=== PATIENT | female | born 1970 | race Two or more races ===

== ENCOUNTER 2024-11-30 12:45 | Emergency (ER) | payer OTHER ==
[2024-11-30 12:54] VITALS: BP 128/76; PULSE 74; RESP 18; TEMP 98.1; BMI 30.8
[2024-11-30] MEDS ORDERED: ACETAMINOPHEN 500 MG TABLET (FP) ONE (13:27)
[2024-11-30] MEDS: ACETAMINOPHEN 500 MG TABLET (FP) PO ONE (13:30)
[2024-11-30 13:33] LABS: URINE APPEARANCE CLEAR; URINE BILIRUBIN NEGATIVE (NEGATIVE); URINE COLOR YELLOW; URINE GLUCOSE (UA) NEGATIVE (NEGATIVE); URINE KETONE NEGATIVE (NEGATIVE); URINE LEUK ESTERASE NEGATIVE (NEGATIVE); URINE NITRITE NEGATIVE (NEGATIVE); URINE PROTEIN NEGATIVE (NEGATIVE); URINE UROBILINOGEN 0.2 mg/dL (0.2-1.0)
== END 2024-11-30 15:21 | disposition home or self-care (01) ==
LOC: JERFT 12:45
DX: M54.50 Low back pain, unspecified (principal); G89.29 Other chronic pain; R30.9 Painful micturition, unspecified
CPT/HCPCS: 72100-TC-FY; 81003; 87086; 99284-25